=== PATIENT | male | born 1975 | race Two or more races ===

== ENCOUNTER 2017-08-26 04:50 | Emergency (ER) | payer SELFPAY ==
[~2017-08-26] VITALS: Ht 177.8 cm; Wt 71.0 kg
[2017-08-26] MEDS ORDERED: SODIUM CHLORIDE 0.9% 1,000 ML IV ONE (06:25)
[2017-08-26 06:43] LABS: BASOPHILS % 0.3 % (0.0-2.0); EOSINOPHILS % 0.3 % (0.0-5.0); HEMATOCRIT. 37.7 % (42.0-52.0); HEMOGLOBIN. 12.9 g/dL (14.0-18.0); LYMPHOCYTES % 7.5 % (20.0-50.0); MEAN CORPUSCULAR HEMOGLOBIN 31.6 pg (28.0-32.0); MEAN CORPUSCULAR VOLUME 92.5 fL (80.0-94.0); MEAN PLATELET VOLUME 8.3 fl (7.4-10.4); MONOCYTES % 4.3 % (2.0-8.0); NEUTROPHILS % 87.6 % (40.0-76.0); PLATELET 186 x1000/uL (130-400); RED BLOOD CELL COUNT 4.07 mill/uL (4.7-6.1); RED CELL DISTRIBUTION WIDTH 13.4 % (11.6-14.6)
[2017-08-26 06:55] LABS: CHLORIDE 105 mEq/L (98-107)
[2017-08-26 06:58] LABS: INR 1.1; PROTHROMBIN TIME 11.3 sec (9.4-11.6)
[2017-08-26 07:01] LABS: TROPONIN I < 0.02 ng/mL (0.00-0.04)
[2017-08-26 07:26] LABS: CREATINE KINASE 237 IU/L (39-308)
[2017-08-26 07:45] LABS: KETONES URINE NEGATIVE (NEGATIVE); LEUKOCYTE ESTERASE URINE NEGATIVE (NEGATIVE); NITRITE URINE NEGATIVE (NEGATIVE); OCCULT BLOOD URINE NEGATIVE (NEGATIVE); PROTEIN URINE NEGATIVE (NEGATIVE); UROBILINOGEN URINE 0.2 E.U./dL (0.2-1.0)
[2017-08-26 07:50] LABS: CLARITY URINE CLEAR (CLEAR); COLOR URINE YELLOW (YELLOW)
[2017-08-26 08:37] VITALS: BP 126/62
== END 2017-08-26 09:18 | disposition home or self-care (01) ==
LOC: ER 04:50
DX: S39.011A Strain of muscle, fascia and tendon of abdomen, initial encounter (principal); R53.83 Other fatigue; R79.89 Other specified abnormal findings of blood chemistry; X50.9XXA Other and unspecified overexertion or strenuous movements or postures, initial encounter; Y93.B9 Activity, other involving muscle strengthening exercises; Y92.89 Other specified places as the place of occurrence of the external cause; Y99.8 Other external cause status
CPT/HCPCS: 36415; 71045; 74176; 80053; 81003; 82550; 83605; 83690; 84484; 85025; 85610; 93005; 96360; 96361; 99285; J7030